=== PATIENT | female | born 1980 | race Caucasian/White ===

== ENCOUNTER 2016-12-02 09:09 | Inpatient (IN) | payer SELFPAY ==
[2016-12-02 13:13] VITALS: BP 103/56
--- NOTE | 2016-12-02 13:19 | HISTORY AND PHYSICAL ---
ADMITTED: 12/02/2016 CHIEF COMPLAINT: 1. at 37-6/7 weeks 2. Spontaneously ruptured membranes 3. Contractions HISTORY OF PRESENT ILLNESS: This patient reportedly broke her bag of water around 2:00 this morning. [place] [facility] and had to wait for a ferry this morning. Initially, she had no contractions, but prior to her catching the ferry she began to have some contractions, but they were not intense or frequent enough for her to stop at a different hospital on the way. She was able to make it to [place] this morning. She is grossly ruptured. tracing is reactive and she is having fairly regular contractions. She has a history of a previous and was planning on a repeat section. Risks of surgery have been reviewed with her including infection, bleeding, damage to maternal or structures, anesthesia, and the possibility of further surgery at the time or in the future. Informed consent has been signed. She will be taken for a repeat section today. MEDICAL/SURGICAL HISTORY: Medical: None. Surgical: , oral surgery. MEDICATIONS: 1. vitamins. ALLERGIES: 1. LATEX. 2. NO KNOWN DRUG ALLERGIES. SOCIAL HISTORY: She denies tobacco, alcohol and drug use. FAMILY HISTORY: Denies. REVIEW OF SYSTEMS: She denies headache, ear pain, throat pain, chest pain, shortness of breath, digestive disorders and joint and extremity problems. PHYSICAL EXAMINATION: GENERAL: She is alert and oriented, well-developed, well-nourished. VITAL SIGNS: Stable. HEENT: Within normal limits. HEART: Normal. LUNGS: Normal. ABDOMEN: Gravid, nontender. EXTREMITIES: No clubbing or cyanosis. LAB/IMAGING: On her labs, she is O negative. RhoGAM was given 09/27/2016. She is GBS negative, HIV negative, hepatitis B negative, RPR nonreactive, rubella immune. AmniSure was positive on arrival. The tracing is reactive. IMPRESSION: 1. Intrauterine at 37-6/7 weeks, spontaneously ruptured membranes, uterine contractions, previous section, advanced maternal age. PLAN: Repeat section, which will be done today. Informed consent has been signed.
--- NOTE | 2016-12-02 13:25 | OPERATIVE REPORT ---
DATE OF SURGERY: 12/02/2016 SURGEON: Denise Yates DO TITLE ONE READING TEACHER: Alyson Pollock MD PEDIATRICS: Catarina Hernandes MD PREOPERATIVE DIAGNOSES: 1. Intrauterine at 37 and 6/7 weeks with previous 2. Spontaneously ruptured membranes 3. Uterine contractions 4. Advanced maternal age POSTOPERATIVE DIAGNOSES: 1. Intrauterine at 37 and 6/7 weeks with previous 2. Spontaneously ruptured membranes 3. Uterine contractions 4. Delivered 5. Nuchal cord x1 6. Advanced maternal age PROCEDURE PERFORMED: 1. Repeat section ANESTHESIA: Spinal. COMPLICATIONS: None. CONDITION: Stable. ESTIMATED BLOOD LOSS: 300 mL. FLUIDS: 1800 mL or LR. Blood administered: None. DRAINS: 0. URINE OUTPUT: 100 mL. PATHOLOGY SPECIMEN: None. IMPLANTS/GRAFTS: None. SURGICAL FINDINGS: Baby girl with Apgars of 9 and 10 with a nuchal cord x1. Normal maternal anatomy. SURGICAL TECHNIQUE: The patient was taken to the operating room where her anesthesia was obtained. She was prepped and draped in the normal sterile fashion in the supine position with a leftward tilt. A Pfannenstiel skin incision was made along her previous scar line and carried down through the subcutaneous tissue, which included scar tissue. The fascia was opened in the midline and extended bilaterally and the rectus muscles were from the fascia using cautery dissection. The muscles were then in the midline. The peritoneum was entered bluntly, and the incision was extended manually. The bladder flap was created and the bladder blade was then positioned. The uterine incision was made in the midline using a scalpel through a very thin lower uterine segment. The incision was extended digitally. The baby was in the vertex position and was delivered without difficulty. There was a nuchal cord that was reduced on delivery of the head. After delivery, the cord was clamped and cut, and the was handed off to Dr. Hernandes and the pediatric team. Cord blood was obtained. The placenta was delivered with gentle traction and uterine massage. The uterus was then cleared of clots and debris, and cervical patency was verified with the ring forceps. The uterine incision was repaired in a double layer using 0 Polysorb: The first layer was a running locked suture and the second layer was an imbricating running suture. Good hemostasis was noted from the wound. The gutters were cleared of clots and debris and the surgical sites were inspected. There was a small amount of bleeding from the central area of the fascia, along an adhesion line, and this was cauterized until good hemostasis was noted in all areas. The fascia was then reapproximated in a running fashion using 0 Polysorb. The subcutaneous tissue was inspected and required no cautery. This layer was then repaired in a running fashion using 3-0 Polysorb. The skin was closed with Insorb brian. Steri-Strips were applied along with a dressing. The patient was undraped and the uterus was expressed, with passage of a small amount of watery, bloody fluid. The fundus was noted to be firm. The patient was then taken to the recovery room in stable condition.
[2016-12-02 13:29] VITALS: BP 121/67
[2016-12-02 13:43] VITALS: BP 109/60
[2016-12-02 13:58] VITALS: BP 115/61
[2016-12-02 14:13] VITALS: BP 118/62
[2016-12-02] MEDS ORDERED: PRENATAL1 TAB PO (14:27)
[2016-12-02 16:00] VITALS: BP 125/70
[2016-12-03 00:01] VITALS: BP 108/62
[2016-12-03 05:40] VITALS: BP 103/61
[2016-12-03 08:13] VITALS: BP 112/66
[2016-12-03] MEDS ORDERED: VICODIN EQUIVAL1 TAB PO (09:04)
[2016-12-03 12:55] VITALS: BP 105/61
[2016-12-03 16:25] VITALS: BP 110/70
[2016-12-04] VITALS: BP 114/63
[2016-12-04 08:24] VITALS: BP 115/67
--- NOTE | 2016-12-04 09:17 | Provider's Discharge Care Plan ---
Problem, Goal, Plan Problem List 1. Post-op pain Goals: Improve function Instructions: Follow up as directed
--- NOTE | 2016-12-04 09:17 | Provider's Discharge Care Plan ---
Problem, Goal, Plan Problem List 1. Post-op pain Goals: Improve function Instructions: Follow up as directed
== END 2016-12-04 15:00 | disposition home or self-care (01) | DRG 540 ==
LOC: OBC SRH 09:09 → OB SRH 09:12
PROVIDERS: ADMIT Obstetrics & Gynecology
PROC: 3E0234Z Introduction of Serum, Toxoid and Vaccine into Muscle, Percutaneous Approach (ICD-10-PCS; 2016-12-02)
PROC: 10D00Z1 Extraction of Products of Conception, Low, Open Approach (ICD-10-PCS; principal; 2016-12-02 11:30)
DX: O75.82 Onset (spontaneous) of labor after 37 completed weeks of gestation but before 39 completed weeks gestation, with delivery by (planned) cesarean section (principal); Z37.0 Single live birth; O34.211 Maternal care for low transverse scar from previous cesarean delivery; Z3A.37 37 weeks gestation of pregnancy; O90.81 Anemia of the puerperium; D62 Acute posthemorrhagic anemia; O69.81X0 Labor and delivery complicated by cord around neck, without compression, not applicable or unspecified; O26.893 Other specified pregnancy related conditions, third trimester; Z67.41 Type O blood, Rh negative
CPT/HCPCS: 40011; 50002; 60001; 83366; 83411; 83426; 83475; 83526; 84038; 90001; 90074; 90155; 91004; 95059